=== PATIENT | female | born 1990 | race Caucasian/White ===

== ENCOUNTER → 2016-10-27 | Outpatient (CLI) | payer BC ==
--- NOTE | 2016-10-27 09:39 | US ---
HISTORY: Dyspareunia Study: Pelvic sonogram Comparison: None Technique: Multiple grayscale sonographic images were obtained. Transabdominally Findings: The uterus measured 4.9 x 4 x 4.4 centimeters. Endometrial thickness was normal at 11 millimeters. T he right ovary measured 4.3 x 1.8 x 3.9 centimeters and appeared normal. The left ovary measured 4 x 1.8 x 3.4 centimeters and appeared normal. No adnexal masses are identified. There is no free fluid within the cul de sac. IMPRESSION: No significant abnormality identified Reported By:
--- NOTE | 2016-10-27 09:40 | US ---
Examination: Abdominal ultrasound. Clinical History: Left upper quadrant abdominal pain. Technique: Real-time kathleen scale ultrasound was used to evaluate the upper abdomen. Comparison: None available. Findings: The gallbladder is normal in appearance with no cholelithiasis, gallbladder wall thickening or peric holecystic fluid noted. The common bile duct measures 4 mm in diameter and is within normal limits. No intrahepatic biliary ductal dilatation is noted. The liver is normal in echogenicity, with no focal mass. The pancreas is suboptimally visualized with no definite abnormality noted. The abdominal aorta and inferior vena cava are normal in caliber. The spleen measures 8.2 cm in the craniocaudal dimension and is unremarkable. The right kidney measures 9.2 cm and is suboptimally visualized with no focal mass, hydronephrosis o r nephrolithiasis noted. The left kidney measures 8.4 cm and is somewhat suboptimally visualized with no focal mass, hydronep hrosis or nephrolithiasis noted. Impression: 1. Negative abdominal ultrasound. Reported By:
== END ==
LOC: RAD 08:35
PROVIDERS: ATTEND Nurse Practitioner Family
DX: N94.11 Superficial (introital) dyspareunia (principal)
CPT/HCPCS: 76700; 76856

== ENCOUNTER → 2017-02-02 | Outpatient (CLI) | payer BC ==
--- NOTE | 2017-02-02 16:57 | RAD ---
Lumbar spine, five views Indication: Lower back pain Comparison: None Findings: Vertebral body heights and alignment are normal. No acute fracture or subluxation is ident ified. There is very mild degenerative disc disease and facet arthropathy at L5-S1. Remaining disk s paces are well maintained. SI joints are normal. Impression: Mild degenerative changes, as above. Reported By:
--- NOTE | 2017-02-02 16:59 | RAD ---
Cervical spine, five views Indication: Neck pain Comparison: None Findings: Vertebral body heights and alignment are normal. No acute fracture or subluxation is ident ified. Disk spaces appear well maintained. There is mild facet arthropathy, greatest at C6-C7 and C7 -T1. Prevertebral soft tissues are unremarkable. Impression: Mild facet arthropathy of the lower cervical spine. Otherwise, unremarkable. Reported By:
== END | disposition home or self-care (01) | DRG 552 ==
LOC: RAD 15:57
PROVIDERS: ATTEND Nurse Practitioner Family
DX: M54.2 Cervicalgia (principal); M54.5 Low back pain; M12.88 Other specific arthropathies, not elsewhere classified, other specified site; M51.37 Other intervertebral disc degeneration, lumbosacral region
CPT/HCPCS: 72050; 72110